=== PATIENT | female | born 1995 | race Caucasian/White ===

== ENCOUNTER 2016-11-30 16:29 | Emergency (ER) | payer BC ==
[2016-11-30 17:25] VITALS: BP 119/70
--- NOTE | 2016-11-30 18:42 | UC ---
Throat Pain/Nasal Grabiel HPI - HPI Summary HPI Summary: pt c/o sore throat and dysphagia that has been "coming and going " X 2 months. Pt denies history of mono and denies getting flu vaccine this year. - History of Current Complaint Chief Complaint: UCGeneralIllness Stated Complaint: SORE THROAT Time Seen by Provider: 11/30/16 18:33 Hx Obtained From: Patient Hx Last Menstrual Period: CURRENT ?: No Onset/Duration: Gradual Onset, Lasting Weeks, Still Present Severity: Mild Associated Signs & Symptoms: Positive: Dysphagia, Hoarseness - Epiglottits Risk Factors Epiglottis Risk Factors: Negative - Allergies/Home Medications Allergies/Adverse Reactions: Allergies Allergy/AdvReac Type Severity Reaction Status Date / Time Clarithromycin [From Biaxin] Allergy Rash Verified 11/30/16 17:25 Home Medications: Home Medications Aspirin TAB* [Aspirin 325 MG TAB*] 325 mg PO DAILY 11/30/16 [History Confirmed 11/30/16] PMH/Surg Hx/FS Hx/Imm Hx Previously Healthy: Yes Respiratory History Of: Reports: Asthma - Surgical History Surgical History: Yes Surgery Procedure, Year, and Place: R ACL RECONSTRUCTION 01/2016. 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 - Family History Known Family History: Positive: Other - positive [facility] for URI - Social History Occupation: Student - at [employer] Alcohol Use: Weekly Substance Use Type: None Smoking Status (MU): Never Smoked Tobacco Review of Systems Constitutional: Fatigue Skin: Negative Eyes: Negative ENT: Sore Throat Respiratory: Negative Cardiovascular: Negative Gastrointestinal: Negative Genitourinary: Negative Motor: Negative Neurovascular: Negative Musculoskeletal: Myalgia Neurological: Negative Psychological: Negative All Other Systems Reviewed And Are Negative: Yes Physical Exam Triage Information Reviewed: Yes Appearance: Well-Appearing Vital Signs: Initial Vital Signs Temp 98.8 F 11/30/16 17:18 Pulse 86 11/30/16 17:18 Resp 18 11/30/16 17:18 BP 119/70 11/30/16 17:18 Pulse Ox 100 11/30/16 17:18 Vital Signs Reviewed: Yes Eye Exam: Normal ENT Exam: Other ENT: Positive: Tonsillar swelling Neck exam: Other Neck: Positive: Tenderness @, Enlarged Nodes @ - bialteral submandibular Respiratory Exam: Normal Cardiovascular Exam: Normal Musculoskeletal Exam: Normal Neurological Exam: Normal Psychological Exam: Normal Skin Exam: Normal Throat Pain/Nasal Course/Dx - Differential Dx/Diagnosis Differential Diagnosis/HQI/PQRI: Mononucleosis, Tonsillitis, URI Provider Diagnoses: tonsillitis Discharge - Discharge Plan Condition: Stable Disposition: HOME Patient Education Materials: Tonsillitis (ED) Referrals: [facility] [place] [facility] [Outside] Additional Instructions: Please follow up with your PCP or return to clinic
[2016-12-01 12:08] LABS: EBV Response YES
[2016-12-01 12:20] LABS: Hematocrit 37 % (35-47); Hemoglobin 12.5 g/dl (12.0-16.0); Mean Corpuscular HGB Conc 34 g/dl (31-36); Mean Corpuscular Hemoglobin 30 pg (27-31); Mean Corpuscular Volume 87 fL (80-97); Mean Platelet Volume 9 um3 (7.4-10.4); Red Cell Distribution Width 14 % (10.5-15); White Blood Count 10.2 10^3/ul (3.5-10.8)
[2016-12-01 12:23] LABS: Add Diff/Slide Review? Slide Review Added; Comments Flag Yes
[2016-12-01 12:24] LABS: Mono Internal Control QC Line Present
[2016-12-01 12:25] LABS: Manual Entry Verification AS; Mono Kit Lot# 6070033
[2016-12-03 12:59] LABS: EBV Capsid Ag IgG Ab Positive (Negative); EBV Capsid Ag IgM Ab Positive (Negative)
== END 2016-11-30 19:20 | disposition home or self-care (01) ==
LOC: UCCORT 16:29
DX: J03.90 Acute tonsillitis, unspecified (principal); Z88.1 Allergy status to other antibiotic agents
CPT/HCPCS: 36415; 85025; 86308; 86664; 86665; 87651; 99201; G0463